=== PATIENT | male | born 1985 | race Caucasian/White ===

== ENCOUNTER 2017-06-03 09:56 | Emergency (ER) | payer SELFPAY ==
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
[2017-06-03 15:11] VITALS: BP 136/89; TEMP 98.6; O2SAT 95
== END 2017-06-03 11:10 | disposition home or self-care (01) ==
LOC: ER 09:56
DX: F31.9 Bipolar disorder, unspecified (principal); Z91.5 Personal history of self-harm; F19.10 Other psychoactive substance abuse, uncomplicated

== ENCOUNTER 2018-04-03 11:45 | Emergency (ER) | payer SELFPAY ==
[2018-04-03 12:10] VITALS: TEMP 98.1; O2SAT 98
--- NOTE | 2018-04-03 12:19 | ED.PDOC ---
History of Present Illness - General Chief Complaint: Dental/Mouth Stated Complaint: R jaw discomfort Time Seen by Provider: 04/03/18 12:09 Source: patient Exam Limitations: no limitations - History of Present Illness Initial Comments: The patient is a 32-year-old male presenting to the emergency room secondary to right mandibular pain after he had his posterior right 2 molars extracted from his right mandible. This happened 3-4 days ago. The patient has narcotics and antibiotics that he is already taking. He has not been taking his gabapentin or Zoloft secondary to not having the funding due to being unable to keep his [facility] follow-ups. There is no evidence of infection at the extraction site. It does appear to be healing well. Pain is likely being exacerbated by coming off of his gabapentin. Timing/Duration: other Severity: severe Improving Factors: nothing Worsening Factors: eating Associated Symptoms: denies symptoms Allergies/Adverse Reactions: Allergies NO KNOWN ALLERGY Allergy (Verified 06/03/17 10:44) Review of Systems - Review of Systems Constitutional: States: no symptoms reported EENTM: States: see HPI Respiratory: States: no symptoms reported Cardiology: States: no symptoms reported Gastrointestinal/Abdominal: States: no symptoms reported Genitourinary: States: no symptoms reported Musculoskeletal: States: no symptoms reported Skin: States: no symptoms reported Neurological: States: no symptoms reported Endocrine: States: no symptoms reported All other Systems: No Change from Baseline Past Medical History (General) - Patient Medical History Hx Stroke: No Hx Congestive Heart Failure: No Hx Diabetes: No Surgical History: no surgical history - Vaccination History Hx Influenza Vaccination: Yes - 2017 Hx Pneumococcal Vaccination: No - Social History Hx Tobacco Use: Yes - Quit 02/2017 Hx Substance Use: Yes Hx Substance Use Treatment: Yes Hx Depression: Yes Family Medical History - Family History Father Family History: Unknown Physical Exam - Physical Exam General Appearance: Alert, Comfortable, No apparent distress Eye Exam: bilateral normal Ears, Nose, Throat: hearing grossly normal, other - ee history of present illness Neck: supple Respiratory: no respiratory distress, no accessory muscle use Cardiovascular/Chest: normal peripheral pulses, no edema Peripheral Pulses: radial,right: 2+, radial,left: 2+ Rectal Exam: deferred Back Exam: no CVA tenderness Extremity: non-tender, no pedal edema, normal capillary refill Neurologic: suspension cord tier II-XII nml as tested, alert, oriented x 3, other - mildly flat affect Skin Exam: normal color - ultiple tattoos Comments: Vital Signs - 24 hr 04/03/18 12:06 Temperature 98.1 F Pulse Rate [ 81 Left Radial] Respiratory 20 Rate Blood Pressure 153/91 [Left Arm] O2 Sat by Pulse 98 Oximetry Progress - Progress Progress: 04/03/18 12:19 the patient is a 32-year-old male presenting secondary to pain from a dental extraction site. The patient is being given a dose of 600 mg of his gabapentin. He needs to keep follow-up with [facility] to get his regular gabapentin dose filled along with his Zoloft. He can continue the medications given to him by the dentist. Additionally Advil ibuprofen or Aleve may help reduce discomfort. Topical numbing agent such as Anbesol may help reduce discomfort as well. ER warnings were given. He should keep follow-up with [facility] and his primary care doctor. I see no evidence of significant infection at this time. Departure - Departure Clinical Impression: Acute pain of mouth Disposition: Discharge to Home or Self Care Condition: Fair Departure Forms: ED Discharge - Pt. Copy, Patient Portal Self Enrollment Instructions: DI for Dental Pain Diet: regular diet Activity: increase activity as tolerated Additional Instructions: the patient is a 32-year-old male presenting secondary to pain from a dental extraction site. The patient is being given a dose of 600 mg of his gabapentin. He needs to keep follow-up with [facility] to get his regular gabapentin dose filled along with his Zoloft. He can continue the medications given to him by the dentist. Additionally Advil ibuprofen or Aleve may help reduce discomfort. Topical numbing agent such as Anbesol may help reduce discomfort as well. ER warnings were given. He should keep follow-up with [facility] and his primary care doctor. I see no evidence of significant infection at this time.
[2018-04-03] MEDS: GABAPENTIN 100 MG CAP PO ONE (12:38)
[2018-04-03 12:54] VITALS: BP 148/86
== END 2018-04-03 12:49 | disposition home or self-care (01) ==
LOC: ER 11:45
DX: G89.18 Other acute postprocedural pain (principal); K08.89 Other specified disorders of teeth and supporting structures; Z87.891 Personal history of nicotine dependence

== ENCOUNTER 2018-08-01 13:46 | Emergency (ER) | payer SELFPAY ==
[2018-08-01 14:22] VITALS: TEMP 98.6
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
[2018-08-01 17:32] VITALS: BP 135/85; O2SAT 98
== END 2018-08-01 17:33 | disposition home or self-care (01) ==
LOC: ER 13:46
DX: F41.9 Anxiety disorder, unspecified (principal); F32.9 Major depressive disorder, single episode, unspecified; Z79.899 Other long term (current) drug therapy